=== PATIENT | female | born 1985 | race Two or more races ===

== ENCOUNTER 2017-05-01 12:18 | Emergency (ER) | payer BC ==
[2017-05-01 12:25] VITALS: BP 116/66; PULSE 73; TEMP 98; BMI 30.6
[2017-05-01 14:02] LABS: URINE APPEARANCE CLEAR; URINE BILIRUBIN NEGATIVE (NEGATIVE); URINE BLOOD NEGATIVE (NEGATIVE); URINE COLOR YELLOW; URINE GLUCOSE (UA) NEGATIVE (NEGATIVE); URINE KETONE NEGATIVE (NEGATIVE); URINE LEUK ESTERASE NEGATIVE (NEGATIVE); URINE NITRITE NEGATIVE (NEGATIVE); URINE PROTEIN NEGATIVE (NEGATIVE); URINE UROBILINOGEN NEGATIVE mg/dL (0.2-1.0)
--- NOTE | 2017-05-01 14:23 | PDOC ---
History of Present Illness - General Chief Complaint: Urinary Problem Stated Complaint: R/O UTI, back pain Time Seen by Provider: 05/01/17 14:12 History Source: Patient Exam Limitations: No Limitations - History of Present Illness Travel History: No Initial Comments: 05/01/17 14:27 She came to emergency department for evaluation of lower abdominal pain, denies nausea vomiting diarrhea or constipation. Was seen at urgent care yesterday and diagnosed with UTI and given prescription which she is taking of Macrobid and Pyridium Timing/Duration: reports: changing over time, intermittent Quality: reports: mild, moderate, cramping Abdominal Pain Onset Location: reports: LLQ, suprapubic Pain Radiation: reports: no radiation Activities at Onset: reports: none Alleviating Factors: improves with: None Past History - Travel Traveled outside of the country in the last 30 days: No Close contact w/someone who was outside of country & ill: No - Past Medical History Allergies/Adverse Reactions: Allergies Allergy/AdvReac Type Severity Reaction Status Date / Time pineapple Allergy Verified 05/01/17 12:24 schilling flavors Allergy Unknown Uncoded 05/01/17 12:24 seafood Allergy Unknown Uncoded 05/01/17 12:24 Home Medications: Ambulatory Orders Nitrofurantoin Macrocrystal [Nitrofurantoin] 50 mg PO ASDIR 05/01/17 Phenazopyridine HCl [Pyridium -] 200 mg PO PC 05/01/17 COPD: No - Suicide/Smoking/Psychosocial Hx Smoking History: Never smoked Have you smoked in the past 12 months: No Information on smoking cessation initiated: No Hx Alcohol Use: No Drug/Substance Use Hx: No Substance Use Type: None Review of Systems - Review of Systems Able to Perform ROS?: Yes Is the patient limited Latvian proficient: Yes Constitutional: Yes: Symptoms Reported, See HPI, Malaise. No: Chills, Fever, Loss of Appetite HEENTM: Yes: See HPI. No: Symptoms Reported Respiratory: Yes: See HPI. No: Symptoms reported, Cough : Yes: See HPI. No: Symptoms Reported, Burning, Discharge, Frequency, Pain, Urgency Musculoskeletal: Yes: Symptoms Reported, See HPI Integumentary: Yes: See HPI. No: Symptoms Reported All Other Systems: Reviewed and Negative *Physical Exam - Vital Signs Last Vital Signs Temp Pulse Resp BP Pulse Ox 98 F 73 17 116/66 100 05/01/17 12:22 05/01/17 12:22 05/01/17 12:22 05/01/17 12:22 05/01/17 12:22 - Physical Exam General Appearance: Yes: Nourished, Appropriately Dressed. No: Apparent Distress HEENT: positive: DEEPTHI, Normal ENT Inspection, TMs Normal, Pharynx Normal Neck: positive: Supple. negative: Lymphadenopathy (R), Lymphadenopathy (L) Respiratory/Chest: positive: Lungs Clear, Normal Breath Sounds Gastrointestinal/Abdominal: positive: Normal Bowel Sounds, Soft, Other (mild suprapubic tenderness, but no rebound or guarding,). negative: Tender, Distended, Guarding, Rebound, Tenderness Musculoskeletal: positive: Normal Inspection (range of motion is intact although has some mild stiffness to her low back muscles. No CVA tenderness), Decreased Range of Motion. 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 We will utilize ibuprofen for musculoskeletal issues and have follow-up with PMD *DC/Admit/Observation/Transfer Diagnosis at time of Disposition: Muscle cramps UTI (urinary tract infection) Qualifiers: Urinary tract infection type: site unspecified Hematuria presence: without hematuria Qualified Code(s): N39.0 - Urinary tract infection, site not specified - Discharge Dispostion Disposition: HOME Condition at time of disposition: Stable Admit: No - Referrals Referrals: Wagner Ayoub MD [Staff Physician] - - Patient Instructions Printed Discharge Instructions: DI for Urinary Tract Infection (UTI) Additional Instructions: Rest, drink lots of fluids: Teas, water, soups Avoid contact with others until fevers and symptoms resolved Lots of handwashing and good hygiene Continue [id number] medications for symptomatic relief Tylenol or Motrin for fever and pain Continue all of antibiotics until completed Followup with private physician in one week for repeat urinalysis/reevaluation Return to emergency department for worsened symptoms, fevers, dehydration - Post Discharge Activity Forms/Work/School Notes: Back to Work
[2017-05-01 14:25] LABS: HCG,QUALITATIVE URINE NEGATIVE
[2017-05-01] MEDS ORDERED: IBUPROFEN 400 MG TABLET (FP) PO ONE ×2 (14:31→14:41)
== END 2017-05-01 14:46 | disposition home or self-care (01) ==
LOC: JERFT 12:18
DX: N39.0 Urinary tract infection, site not specified (principal); R25.2 Cramp and spasm
CPT/HCPCS: 81003; 84703; 87086; 99281-25

== ENCOUNTER 2018-07-30 10:45 | Emergency (ER) | payer BC ==
[2018-07-30 10:49] VITALS: TEMP 98.8; BMI 32.4
[2018-07-30 11:13] LABS: BASO % 0.6 % (0-2.0); EOS % 0.9 % (0-4.5); HEMATOCRIT 34.9 % (32.4-45.2); HEMOGLOBIN 11.2 GM/dl (10.7-15.3); LYMPH % 26.4 % (8-40); MCH 24.9 pg (25.7-33.7); MCHC 32.1 g/dl (32.0-36.0); MEAN CELL VOLUME 77.5 fl (80-96); MEAN PLT VOLUME 8.1 fl (7.5-11.1); MONO % 7.6 % (3.8-10.2); NEUT % 64.5 % (42.8-82.8); PLATELET COUNT 328 K/MM3 (134-434); RDW 17.4 % (11.6-15.6); WHITE BLOOD COUNT 5.2 K/mm3 (4.0-10.8)
--- NOTE | 2018-07-30 11:13 | PDOC ---
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 Pt states she noted 1 episode of light vaginal bleeding Sunday that resolved, however today BRB was noted after a BM again without blood filling the toilet, streaking stool or leaking. Pt also admits to mild suprapubic abdominal pain today with burning on urination for 2 weeks. Denies changes in bowel habits, back pain, F/C, CP or SOB. Also denies recent trauma or intercourse. Of note, Pt went to an Urgent Care 2 weeks ago for back pain and suprapubic pain (found to have UTI however no growth with culture and told to stop Keflex the next day, back pain also resolved) and saw OB Dr. Loco 07/26/2018 (Dr. Macedo on Vacation), sono done which showed a 5-6 week yolk sac but 7-8 week preg was expected. LMP June 09, recent beta HCG done but unknown. Denies hx of ectopic , contraceptive use, Of note, pt states she has felt lightheaded/dizzy over the last 2-3 weeks without any complaints of LOC, syncope, CP, palpitations, BROWNING, SOB. Past History - Past Medical History Allergies/Adverse Reactions: Allergies Allergy/AdvReac Type Severity Reaction Status Date / Time pineapple Allergy Verified 07/30/18 10:47 schilling flavors Allergy Unknown Uncoded 05/01/17 12:24 seafood Allergy Unknown Uncoded 05/01/17 12:24 Home Medications: Ambulatory Orders Nitrofurantoin Monohyd/M-Cryst [Macrobid -] 100 mg PO BID #14 capsule 07/30/18 COPD: No - Reproductive History Is Patient Now?: Yes (#): 2 Para: 1 Therapeutic (s) & number: No Spontaneous : 0 - Suicide/Smoking/Psychosocial Hx Smoking History: Never smoked Have you smoked in the past 12 months: No Hx Alcohol Use: No Drug/Substance Use Hx: No Substance Use Type: None Review of Systems - Review of Systems Constitutional: No: Chills, Fever *Physical Exam - Vital Signs Last Vital Signs Temp Pulse Resp BP Pulse Ox 98.8 F 83 18 124/81 99 07/30/18 10:46 07/30/18 10:46 07/30/18 10:46 07/30/18 10:46 07/30/18 10:46 ED Treatment Course - LABORATORY CBC & Chemistry Diagram: 07/30/18 11:01 07/30/18 11:05 Medical Decision Making - Medical Decision Making 07/30/18 15:02 Pt Beta from 07/26/2018 [id number] *DC/Admit/Observation/Transfer - Discharge Dispostion Condition at time of disposition: Stable - Prescriptions Prescriptions: Nitrofurantoin Monohyd/M-Cryst [Macrobid -] 100 mg PO BID #14 capsule - Referrals - Patient Instructions Printed Discharge Instructions: DI for Threatened Additional Instructions: Follow up with Dr. Macedo as scheduled on . Take the antibiotics as prescribed for your urine infection Return to the emergency department if you have any new, worsening, or concerning symptoms, such as soaking through 2 or more pads for 2 or more hours. - Post Discharge Activity
[2018-07-30 11:26] LABS: ANION GAP 7 MMOL/L (8-16); BLOOD UREA NITROGEN 10 mg/dl (7-18); CALCIUM 9.1 mg/dl (8.5-10); CHLORIDE 105 mmol/L (98-107); CO2 24 mmol/L (21-32); CREATININE 0.8 mg/dl (0.55-1.3); GLUCOSE,RANDOM 92 mg/dl (74-106); POTASSIUM 3.9 mmol/L (3.5-5.1); SODIUM 136 mmol/L (136-145)
[2018-07-30 11:27] LABS: EPITHELIAL CELLS 2+ /hpf
--- NOTE | 2018-07-30 12:40 | PDOC ---
Attending Attestation - Resident Resident Name: Misael Do - ED Attending Attestation I have performed the following: I have examined & evaluated the patient, The case was reviewed & discussed with the resident, I agree w/resident's findings & plan, Exceptions are as noted - HPI HPI: 07/30/18 12:33 33yo F , 5-6 weeks preg (by Tk last sunday) but LMP 06/09/18 presents to the ED with 3 days of intermittent vaginal spotting. Noticed BRB when she wiped today after BM and also had episode of spotting in underwear 2 days ago. Not passing clots. Reports associated suprapubic pain and cramping. +nausea in mornings, but not for rest of the day. No vomiting. Denies fevers, chills, dizziness, cp, sob, LE edema, rashes. Pt with 2 recent visits to , last 3 days ago for back pain, had US that showed 5-6 week . Denies back pain today. - Physicial Exam PE: 07/30/18 13:46 GENERAL: Awake, alert, and fully oriented, in no acute distress EYES: PERRLA, EOMI, sclera anicteric, conjunctiva clear ENT: Oropharynx clear without exudates. Moist mucosa LUNGS: Breath sounds equal, clear to auscultation bilaterally. No wheezes, and no crackles HEART: Regular rate and rhythm, normal S1 and S2, no murmurs, rubs or gallops ABDOMEN: Soft, nontender, normoactive bowel sounds. No guarding, no rebound. No masses : ext genitalia wnl, no blood in vault, +midline discomfot to palpation, no adnexal ttp. No CMT. No discharge EXTREMITIES: Normal range of motion, no edema. No cords, erythema, or tenderness NEUROLOGICAL: Normal speech, cranial nerves intact, equal strength and sensation b/l SKIN: Warm, Dry, normal turgor, no rashes or lesions noted. - Medical Decision Making 07/30/18 13:50 33yo F presents to the ED with 3 days of intermittent vaginal spotting and suprapubic pain Vitals wnl DDx includes threatened ab vs spontaneous ab vs UTI Labs wnl UA c/f UTI, will treat with macrobid (previous Ucx noncontributory) TVUS with single live IUP 6+3 with FHR 120 as well as 3x2cm ovarian cyst Dr. Do obtained [place] 2 [place], [place] [id number], [place] [id number] which is inappropriate rise Likely threatened ab with UTI Type and screen O+ Pt has f/u with Dr. Macedo immediately after ED visit. Clinically stable for DC home I discussed the physical exam findings, ancillary test results and final diagnoses with the patient. I answered all of the patient's questions. The patient was satisfied with the care received and felt comfortable with the discharge plan and treatment plan. The patient will call their primary care physician within 24 hours to arrange follow-up and will return to the Emergency Department with any new, persistent or worsening symptoms. *DC/Admit/Observation/Transfer Diagnosis at time of Disposition: Spontaneous , Vaginal bleeding, UTI (urinary tract infection) - Discharge Dispostion Disposition: HOME Condition at time of disposition: Stable Decision to Admit order: No - Prescriptions Prescriptions: Nitrofurantoin Monohyd/M-Cryst [Macrobid -] 100 mg PO BID #14 capsule - Referrals - Patient Instructions Printed Discharge Instructions: DI for Threatened Additional Instructions: Follow up with Dr. Macedo as scheduled on . Take the antibiotics as prescribed for your urine infection Return to the emergency department if you have any new, worsening, or concerning symptoms, such as soaking through 2 or more pads for 2 or more hours. - Post Discharge Activity - Attestations Physician Attestion: 07/30/18 15:10 I, Dr. Mark Gaitan MD, attest that this document has been prepared under my direction and personally reviewed by me in its entirety. I further attest, that it accurately reflects all work, treatment, procedures and medical decision -making performed by me.
[2018-07-30] MEDS ORDERED: NITROFURANTOIN MACROCRYSTAL 50 MG CAPSULE (FP) PO SCH (12:45)
[2018-07-30] MEDS ORDERED: NITROFURANTOIN MACROCRYSTAL 50 MG CAPSULE (FP) ONE (12:50)
[2018-07-30 14:26] VITALS: BP 125/76; PULSE 80
== END 2018-07-30 14:25 | disposition home or self-care (01) ==
LOC: FER 10:45
DX: O03.9 Complete or unspecified spontaneous abortion without complication (principal); N93.9 Abnormal uterine and vaginal bleeding, unspecified; N39.0 Urinary tract infection, site not specified
CPT/HCPCS: 36415; 76817-TC; 80048; 81003; 81015; 84702; 85025; 86850; 86900; 86901; 87086; 99282-25

== ENCOUNTER 2018-09-18 20:53 | Emergency (ER) | payer BC | END 2018-09-18 21:10 | disposition home or self-care (01) | LOC: FER 20:53 ==

== ENCOUNTER 2018-12-22 08:49 | Emergency (ER) | payer BC | END 2018-12-22 09:20 | disposition home or self-care (01) | LOC: FER 08:49 ==

== ENCOUNTER 2019-06-18 03:44 | Emergency (ER) | payer BC ==
--- NOTE | 2019-06-18 03:47 | PDOC ---
History of Present Illness - General Chief Complaint: Pain Stated Complaint: ADDOMINAL PAIN, DIARRHEA AFTER EATING DINNER Time Seen by Provider: 06/18/19 03:46 - History of Present Illness Initial Comments: 06/18/19 03:59 This 34-year-old woman with a history of gastritis presents with several hour history of epigastric pain radiating to the mid back accompanied by nausea (with vomiting once, minimal emesis) and watery stool once (no blood or mucus). Pain began approximately 8 PM last evening (approximately 2 hours after eating dinner) and became progressively worse through the evening hours. Patient was able to sleep briefly but was awakened at approximately 2 AM with severe pain. She had similar symptoms 1 week ago after eating Burkinan food; symptoms resolved over 24 hours. She denies fever/chills. The patient's history of gastritis was "years ago", during which she had upper endoscopy for persistent epigastric pain. Gastritis was diagnosed and symptoms resolved after patient was prescribed a medication (cannot recall name). She has not had any persistent epigastric pain until the past week. No history of gallbladder disease/gallstones. No known drug allergies No daily medications Non-smoker; no daily alcohol or recreational drug use Past History - Past Medical History Allergies/Adverse Reactions: Allergies Allergy/AdvReac Type Severity Reaction Status Date / Time pineapple Allergy Verified 06/18/19 03:46 schilling flavors Allergy Unknown Uncoded 06/18/19 03:46 seafood Allergy Unknown Uncoded 06/18/19 03:46 Home Medications: Ambulatory Orders Prenat 115/Iron Fum/Folic/Dss [ 19 Tablet] 1 each PO DAILY 12/22/18 Lidocaine 5% Patch [Lidoderm -] 1 patch TP DAILY #10 patch 06/18/19 Sucralfate [Carafate -] 1 gm PO TID #30 tablet 06/18/19 COPD: No - Reproductive History (#): 2 Para: 1 Therapeutic (s) & number: No Spontaneous : 0 - Psycho Social/Smoking Cessation Hx Smoking History: Never smoked Have you smoked in the past 12 months: No Number of Cigarettes Smoked Daily: 0 Hx Alcohol Use: No Drug/Substance Use Hx: No Substance Use Type: None Review of Systems - Review of Systems Able to Perform ROS?: Yes Comments:: 12 point review of systems is negative except for what is noted in the history of present illness *Physical Exam - Physical Exam GENERAL: Adult female, alert and oriented x3, mild distress secondary to abdominal pain HEAD: Normal with no signs of trauma. EYES: PERRLA, EOMI, sclera anicteric, conjunctiva clear. ENT: Ears normal, nares patent, oropharynx clear without exudates. Dry mucous membranes. NECK: Normal range of motion, supple without lymphadenopathy, JVD, or masses. LUNGS: Breath sounds equal, clear to auscultation bilaterally. No wheezes, and no crackles. HEART:Regular rate and rhythm, normal S1 and S2 without murmur, rub or gallop. ABDOMEN:.normal bowel sounds; protuberant, soft; mild epigastric tenderness without rebound or guarding. Positive Jett's sign; no other tenderness, masses, rebound or guarding EXTREMITIES: Normal range of motion, no edema. No clubbing or cyanosis. No erythema, or tenderness. NEUROLOGICAL: Cranial nerves II through XII grossly intact. Normal speech. No focal neurological deficits. MUSCULOSKELETAL: Back non-tender to palpation, no CVA tenderness SKIN: Warm, Dry, normal turgor, no rashes or lesions noted. ED Treatment Course - LABORATORY CBC & Chemistry Diagram: 06/18/19 04:05 06/18/19 04:05 Medical Decision Making - Medical Decision Making 06/18/19 04:09 This otherwise healthy 34-year-old woman presents with several hours history of epigastric pain radiating to the back; symptoms began a few hours after eating dinner this evening. Patient had similar symptoms 1 week ago after eating Burkinan food for dinner. Patient has had accompanying nausea (minimal vomiting) and one episode of loose stools. No fever or chills noted. No hematuria/dysuria/urinary frequency Exam notable for mild epigastric tenderness and significant Jett's sign. Postprandial epigastric discomfort with nausea/vomiting/diarrhea and right upper quadrant tenderness differential diagnosis includes but not limited to: Biliary colic, acute cholecystitis, acute gastritis, peptic ulcer disease, pancreatitis, renal stone. IV access obtained; CBC/chemistry profile/lipase/UA/PGU sent. 1 L normal saline IV hydration started; patient will have Toradol 30 mg IV for pain relief. Gallbladder ultrasound ordered to evaluate for biliary pathology/gallstones/acute cholecystitis 06/18/19 06:04 Laboratory evaluation essentially normal with normal CBC, chemistry profile and lipase UA positive for LE; micro 6 WBC, 0 RBC,5 epi, 245 bacteria: Sent for urine culture and sensitivity Gallbladder ultrasound performed: Preliminary interpretation by Imaging rail operations controller- no evidence of biliary pathology or other significant abnormal process. Results discussed with the patient. Patient feels significantly better although she still has some mid back/flank discomfort; because she has a history of gastritis, she avoids nonsteroidal anti-inflammatory medications and takes Tylenol as needed for pain. She also has used lidocaine patches in the past for muscle pain. Patient states that she remembered the identification of the medication that helped her gastritis: Sucralfate. Prescription for sucralfate 1 g tabs taken on empty stomach 3 times a day before meals sent to her pharmacy. Patient should continue to drink plenty of fluids and maintain a light diet; she should advance diet cautiously. She should arrange follow-up with her general medical doctor within the next few days and return to the ER if symptoms worsen or she develops persistent vomiting/fever Discharge - Discharge Information Problems reviewed: Yes Clinical Impression/Diagnosis: Gastroenteritis, Flank pain Condition: Stable Disposition: HOME - Additional Discharge Information Prescriptions: Sucralfate [Carafate -] 1 gm PO TID #30 tablet Lidocaine 5% Patch [Lidoderm -] 1 patch TP DAILY #10 patch - Follow up/Referral - Patient Discharge Instructions Patient Printed Discharge Instructions: DI for Bacterial Gastroenteritis -- Adult Additional Instructions: Drink plenty of fluids; light diet and advance cautiously Tylenol as needed for pain Can use local warmth and lidocaine patch daily in the area of lower back/flank pain Carafate tablet 1 g 3 times a day; take on empty stomach before meals Can use Imodium/Pepto-Bismol as needed for loose stools Call your general doctor today to arrange follow-up within the next few days Return to ER if you have severe pain, persistent vomiting or fever - Post Discharge Activity Work/Back to School Note: Back to Work
[2019-06-18 03:56] VITALS: BP 129/88; PULSE 72; TEMP 98.1; BMI 30.4
[2019-06-18] MEDS ORDERED: SODIUM CHLORIDE 1,000 ML IV STA (03:58)
[2019-06-18] MEDS ORDERED: KETOROLAC TROMETHAMINE 30 MG/1 ML VIAL IVPUSH ONE (03:58)
[2019-06-18] MEDS ORDERED: KETOROLAC TROMETHAMINE 30 MG/1 ML VIAL ONE (04:04)
[2019-06-18 04:42] LABS: BASO % 0.4 % (0-2.0); EOS % 0.7 % (0-4.5); HEMATOCRIT 35.4 % (32.4-45.2); HEMOGLOBIN 11.8 GM/dL (10.7-15.3); LYMPH % 22.2 % (8-40); MCH 28.6 pg (25.7-33.7); MCHC 33.4 g/dl (32.0-36.0); MEAN CELL VOLUME 85.8 fl (80-96); MEAN PLT VOLUME 7.8 fl (7.5-11.1); NEUT % 70.7 % (42.8-82.8); PLATELET COUNT 273 K/MM3 (134-434); RBC 4.12 M/mm3 (3.60-5.2); RDW 13.5 % (11.6-15.6)
[2019-06-18 05:02] LABS: HCG,QUALITATIVE URINE Negative
[2019-06-18 05:03] LABS: HYALINE CASTS 0 /lpf (0-8); URINE APPEARANCE CLEAR; URINE BACTERIA 245.2 /hpf (NEGATIVE); URINE BILIRUBIN NEGATIVE (NEGATIVE); URINE COLOR YELLOW; URINE GLUCOSE (UA) NEGATIVE (NEGATIVE); URINE KETONE NEGATIVE (NEGATIVE); URINE LEUK ESTERASE 1+ (NEGATIVE); URINE NITRITE NEGATIVE (NEGATIVE); URINE PROTEIN NEGATIVE (NEGATIVE); URINE RBC 0 /hpf (0-4); URINE UROBILINOGEN 0.2 mg/dL (0.2-1.0); URINE WBC 6 /hpf (0-5)
[2019-06-18 05:05] LABS: ALBUMIN 3.6 g/dl (3.4-5.0); BILIRUBIN,TOTAL 0.4 mg/dL (0.2-1); BLOOD UREA NITROGEN 9.1 mg/dL (7-18); CALCIUM 8.7 mg/dL (8.5-10.1); CREATININE 0.8 mg/dL (0.55-1.3); POTASSIUM 3.9 mmol/L (3.5-5.1); TOT PROT 7.5 g/dl (6.4-8.2)
== END 2019-06-18 06:07 | disposition home or self-care (01) ==
LOC: FER 03:44
PROC: 3E0333Z Introduction of Anti-inflammatory into Peripheral Vein, Percutaneous Approach (ICD-10-PCS; principal; 2019-06-18)
PROC: 3E0337Z Introduction of Electrolytic and Water Balance Substance into Peripheral Vein, Percutaneous Approach (ICD-10-PCS; 2019-06-18)
DX: K52.9 Noninfective gastroenteritis and colitis, unspecified (principal); R10.11 Right upper quadrant pain; Z91.013 Allergy to seafood; Z91.018 Allergy to other foods
CPT/HCPCS: 36415; 76705-TC; 80053; 81003; 83690; 84703; 85025; 87086; 99285-25; J7030